=== PATIENT | male | born 1980 | race Caucasian/White ===

== ENCOUNTER 2017-10-24 14:14 | Emergency (ER) | payer BC ==
[2017-10-24] MEDS: HYDROCODONE/APAP (5/325) TAB PO (17:47)
[2017-10-24] MEDS ORDERED: IBUPROFEN 800 MG TAB PO (18:00)
== END 2017-10-24 18:20 | disposition home or self-care (01) ==
LOC: FTE 14:14
DX: S05.92XA Unspecified injury of left eye and orbit, initial encounter (principal); F17.210 Nicotine dependence, cigarettes, uncomplicated; X58.XXXA Exposure to other specified factors, initial encounter; Y92.9 Unspecified place or not applicable
CPT/HCPCS: 70480; 99284-25